=== PATIENT | male | born 1950 | race Caucasian/White ===

== ENCOUNTER → 2017-08-05 | Day surgery (SDC) | payer MEDICARE ==
[~2017-08-05] MED LIST: APIX5TAB PO; BUTA1CAP5 PO; CHOL500022 PO; HYDR-3583 PO; HYDR25TA5 PO; LIDOCAINE HCL 1% PF 30 ML VIAL EPIDURAL ONE; LOSA50TA PO; MEPERIDINE HCL 25 MG/ML VIAL IV ONE; MIDAZOLAM HCL 2 MG/2 ML VIAL IV ONE; PANT40TA3 PO; PROPOFOL 200 MG/20 ML AMP IV ONE; SIMV10TA PO; SODIUM CHLORIDE 0.9% 10 ML VIAL ONE; TAMS0.4C4 PO; TRAZ1TAB14 PO; TRIAMCINOLONE ACETONIDE 40 MG/ML VIAL NERV BLOCK ONE; VERA1TAB10 PO; VITA10002 PO
--- NOTE | 2017-08-08 10:40 | M6 ---
cc: OLIVIA VAZQUEZ M.D. DATE: 08/05/2017. DATE OF : 1950 PROCEDURE PERFORMED: Fluoroscopically guided left L3-4 transforaminal epidural steroid injection. DESCRIPTION OF THE PROCEDURE IN DETAIL: History and physical was completed and signed. Consent was signed. Procedure site was marked. Medications were listed and reconciled. Pain score was recorded. Allergies were noted. Time out was taken. Fluoroscopy time was recorded where applicable. Sedation was administered or directed by Dr. Vazquez. The patient was given oxygen. The patient was monitored by a registered nurse. Total procedure time was greater than 15 minutes. An IV was started, blood pressure cuff, pulse oximeter and EKG were applied. The patient was placed in the prone position on a Amrit table, sedated with small amounts of Versed and propofol titrated to effect. Vital signs were monitored and remained stable throughout the procedure. The patient remained responsive throughout the procedure. The lumbar area was scrubbed with antimicrobial solution, prepped with 10% Betadine solution, and draped with sterile drapes. Fluoroscopy was used in both the AP and lateral projections to clearly visualize the left L3-4 neural foramen. Then separate sterile 22-gauge, 3-1/2-inch Chiba needles were advanced under fluoroscopic guidance into the dorsal-most aspect of each foramen. There was negative aspiration for blood or CSF. There were no reported paresthesias by the patient. There was no washout of 2 mL of Omnipaque. Then after waiting approximately 60 seconds the patient was slowly given 3 mL of 1% Xylocaine, 3 mL of normal saline and 60 mg of Kenalog at that location. Following this, the patient was taken to the recovery room with stable vital signs, neurologically intact. W. MD ROSY Rucker/PHILL /8:27 AM /10:36 AM
== END | disposition home or self-care (01) ==
LOC: PHSDC 06:50
PROVIDERS: ATTEND Pain Medicine Interventional Pain Medicine
DX: M54.5 Low back pain (principal)
CPT/HCPCS: 64483; 99152; J2175; J2250; J3301

== ENCOUNTER → 2017-08-19 | Day surgery (SDC) | payer MEDICARE ==
[~2017-08-19] MED LIST changes: +GABA300C5 PO
--- NOTE | 2017-08-21 21:41 | M6 ---
cc: Fredy VAZQUEZ DATE 08/19/2017 1950 PROCEDURE Fluoroscopically guided left L3-4 transforaminal epidural steroid injection. History and physical was completed and signed. Consent was signed. Procedure site was marked. Medications were listed and reconciled. Pain score was recorded. Allergies were noted. Time out was taken. Fluoroscopy time was recorded where applicable. Sedation was administered or directed by Dr. Vazquez. The patient was given oxygen. The patient was monitored by a registered nurse. Total procedure time was greater than 15 minutes. PROCEDURE NOTE An IV was started, blood pressure cuff, pulse oximeter and EKG were applied. The patient was placed in the prone position on a Amrit table, sedated with small amounts of Versed and propofol titrated to effect. Vital signs were monitored and remained stable throughout the procedure. The patient remained responsive throughout the procedure. The lumbar area was scrubbed with antimicrobial solution, prepped with 10% Betadine solution, and draped with sterile drapes. Fluoroscopy was used in both the AP and lateral projections to clearly visualize the left L3-4 neural foramen. Then separate sterile 22 gauge, 3 1/2-inch Chiba needles were advanced under fluoroscopic guidance into the dorsal-most aspect of each foramen. There was negative aspiration for blood or CSF. There were no reported paresthesias by the patient. There was no washout of 2 mL of Omnipaque. Then after waiting approximately 60 seconds, the patient was slowly given 3 mL of 1% Xylocaine, 3 mL of Omnipaque and 60 mg of Kenalog at that location. MD ROSY Chou/ /10:38 AM /9:26 PM
== END | disposition home or self-care (01) ==
LOC: PHSDC 08:59
PROVIDERS: ATTEND Pain Medicine Interventional Pain Medicine
DX: M54.5 Low back pain (principal)
CPT/HCPCS: 64483; 99152; J2175; J2250; J3301

== ENCOUNTER → 2017-10-21 | Day surgery (SDC) | payer MEDICARE ==
[~2017-10-21] MED LIST changes: +LIDOCAINE HCL 1% 30 ML VIAL OTHER ONE; -LIDOCAINE HCL 1% PF 30 ML VIAL EPIDURAL ONE; -SODIUM CHLORIDE 0.9% 10 ML VIAL ONE; +methylPREDNISolone ACETATE 40 MG/ML VIAL I-ARTICULR ONE
--- NOTE | 2017-10-21 10:57 | M6 ---
cc: Fredy Vazquez MD DATE: 10/21/2017 PROCEDURE: Fluoroscopically guided L4-L5 epidural steroid injection. PROCEDURE NOTE: History and physical was completed and signed. Consent was signed. Procedure site was marked. Medications were listed and reconciled. Pain score was recorded. Allergies were noted. Time out was taken. Fluoroscopy time was recorded where applicable. Sedation was administered or directed by Dr. Vazquez. The patient was given oxygen. The patient was monitored by a registered nurse. Total procedure time was greater than 15 minutes. IV was started. Blood pressure cuff, pulse oximeter and EKG were applied. The patient was placed in the prone position on a Amrit table, sedated with small amounts of Propofol titrated to effect. Vital signs were monitored and remained stable throughout the procedure. Lumbar area was prepped with alcohol and 10% Betadine solution and draped with sterile drapes. Fluoroscopy was used to visualize the L4-L5 interlaminar space. The skin was infiltrated with 1% Xylocaine using a 27-gauge needle. Then a 3-1/2 inch, 18-gauge Cortez needle was advanced using fluoroscopic guidance and the loss of resistance technique into the epidural space at L4-5 slightly to the left of the midline. There was negative aspiration for blood or any other type of fluid and at that location, the patient was given 10 mL of 0.5% Xylocaine and 80 mg of Depo-Medrol. Following this, the patient was taken to the recovery room with stable vital signs, neurologically intact. MD ROSY Chou/HERACLIO , 10:41 AM , 10:57 AM
== END | disposition home or self-care (01) ==
LOC: PHSDC 09:11
PROVIDERS: ATTEND Pain Medicine Interventional Pain Medicine
DX: M54.5 Low back pain (principal); M79.652 Pain in left thigh
CPT/HCPCS: 64483; 99152; J1030; J2175; J2250; J3301